=== PATIENT | male | born 1945 | race Caucasian/White ===

== ENCOUNTER 2016-06-17 15:15 | Inpatient (IN) | payer MEDICARE ==
[~2016-06-17] VITALS: Ht 177.8 cm; Wt 118.1 kg
[~2016-06-17 15:15] MED LIST: ASPI325T11 PO; ATOR20TA58 PO; CARV3.122 PO; INSU100I13 SQ; INSU100I17 SQ; LANS15CA5 PO; LOSA50TA6 PO; OMEP20CA9 PO; PRAS10TA4 AD; TRIA1CAP3 PO
[2016-06-17] MEDS ORDERED: ONDANSETRON PF 4 MG/2 ML VIAL. IV PRN (15:45)
[2016-06-17 15:48] LABS: BASO # 0.1 x10^3/uL (0.0-0.2); BASO % 1 % (0-3); EOS % 1 % (0-3); HEMATOCRIT 43.6 % (39.0-53.0); HEMOGLOBIN 14.6 g/dL (13.0-17.5); LYMPH # 1.8 x10^3/uL (1.0-4.8); LYMPH % 14 % (24-48); MEAN CORPUSCULAR HEMOGLOBIN 30 pg (25-35); MEAN CORPUSCULAR HGB CONC 34 g/dL (31-37); MEAN CORPUSCULAR VOLUME 90 fL (79-100); MONO % 8 % (0-9); NEUT % 76 % (31-73); PLATELET COUNT 220 x10^3/uL (140-400); RED BLOOD COUNT 4.86 x10^6/uL (4.30-5.70); RED CELL DISTRIBUTION WIDTH 14.6 % (11.5-14.5); WHITE BLOOD COUNT 13.3 x10^3/uL (4.0-11.0)
--- NOTE | 2016-06-17 15:49 | PHYS DOC ---
Past Medical History Past Medical History: CAD, Cancer, Diabetes-Type II, GERD, High Cholesterol, Hypertension, [place] Additional Past Medical Histor: skin cancer Past Surgical History: Other Additional Past Surgical Histo: C.C. with stent placement, skin cancer removed Alcohol Use: None Drug Use: None Adult General Chief Complaint Chief Complaint: CHEST PAIN HPI HPI 70-year-old male who presents with intermittent chest pain that he has had before. Patient had a heart catheterization back in April and had 2 stents placed. He had several other disease vessels that were not repaired at that time. Patient states she's been relatively chest pain-free since that time until last evening where he now states he has significant chest pain with activities. At rest he does not have chest pain. His any nausea or vomiting. He denies any shortness of breath. Patient is on Effient and aspirin therapy. Currently he states he is having no pain. Review of Systems Review of Systems Constitutional: Denies fever or chills [] Eyes: Denies change in visual acuity, redness, or eye pain [] HENT: Denies nasal congestion or sore throat [] Respiratory: Denies cough or shortness of breath [] Cardiovascular: No additional information not addressed in HPI [] GI: Denies abdominal pain, nausea, vomiting, bloody stools or diarrhea [] : Denies dysuria or hematuria [] Musculoskeletal: Denies back pain or joint pain [] Integument: Denies rash or skin lesions [] Neurologic: Denies headache, focal weakness or sensory changes [] Endocrine: Denies polyuria or polydipsia [] Current Medications Current Medications Allergies Allergies Allergies Coded Allergies Type Severity Reaction Last Updated Verified No Known Drug Allergies 05/08/16 No Physical Exam Physical Exam Constitutional: Well developed, well nourished, no acute distress, non-toxic appearance. [] HENT: Normocephalic, atraumatic, bilateral external ears normal, oropharynx moist, no oral exudates, nose normal. [] Eyes: PERRLA, EOMI, conjunctiva normal, no discharge. [] Neck: Normal range of motion, no tenderness, supple, no stridor. [] Cardiovascular:Heart rate regular rhythm, no murmur [] Lungs & Thorax: Bilateral breath sounds clear to auscultation [] Abdomen: Bowel sounds normal, soft, no tenderness, no masses, no pulsatile masses. [] Skin: Warm, dry, no erythema, no rash. [] Back: No tenderness, no CVA tenderness. [] Extremities: No tenderness, no cyanosis, no clubbing, ROM intact, no edema. [] Neurologic: Alert and oriented X 3, normal motor function, normal sensory function, no focal deficits noted. [] Psychologic: Affect normal, judgement normal, mood normal. [] Current Patient Data Vital Signs Vital Signs Date Time Temp Pulse Resp B/P Pulse Ox O2 Delivery O2 Flow Rate FiO2 06/17/16 15:33 98.4 70 16 153/67 96 Room Air 98.4 Lab Values Laboratory Tests Test 06/17/16 15:35 White Blood Count 13.3x10^3/uL (4.0-11.0) H Red Blood Count 4.86x10^6/uL (4.30-5.70) Hemoglobin 14.6g/dL (13.0-17.5) Hematocrit 43.6% (39.0-53.0) Mean Corpuscular Volume 90fL (79-100) Mean Corpuscular Hemoglobin 30pg (25-35) Mean Corpuscular Hemoglobin Concent 34g/dL (31-37) Red Cell Distribution Width 14.6% (11.5-14.5) H Platelet Count 220x10^3/uL (140-400) Neutrophils (%) (Auto) 76% (31-73) H Lymphocytes (%) (Auto) 14% (24-48) L Monocytes (%) (Auto) 8% (0-9) Eosinophils (%) (Auto) 1% (0-3) Basophils (%) (Auto) 1% (0-3) Neutrophils # (Auto) 10.1x10^3uL (1.8-7.7) H Lymphocytes # (Auto) 1.8x10^3/uL (1.0-4.8) Monocytes # (Auto) 1.1x10^3/uL (0.0-1.1) Eosinophils # (Auto) 0.2x10^3/uL (0.0-0.7) Basophils # (Auto) 0.1x10^3/uL (0.0-0.2) Sodium Level 142mmol/L (136-145) Potassium Level 3.6mmol/L (3.5-5.1) Chloride Level 105mmol/L (98-107) Carbon Dioxide Level 26mmol/L (21-32) Anion Gap 11 (6-14) Blood Urea Nitrogen 22mg/dL (8-26) Creatinine 1.2mg/dL (0.7-1.3) Estimated GFR (Cockcroft-Gault) 59.7 Glucose Level 99mg/dL (70-99) Calcium Level 9.2mg/dL (8.5-10.1) Troponin I Quantitative 0.021ng/mL (0.000-0.055) Laboratory Tests 06/17/16 15:35 Laboratory Tests 06/17/16 15:35 EKG EKG EKG as interpreted by me shows a sinus rhythm with a rate of 60 bpm. This EKG does not meet STEMI criteria. There are no overt signs of ischemia on this EKG. Radiology/Procedures Radiology/Procedures Portable 1 view of the chest as interpreted by me does not reveal an acute cardiopulmonary process Course & Med Decision Making Course & Med Decision Making Pertinent Labs and Imaging studies reviewed. (See chart for details) This 70-year-old male who is having intermittent chest pressure and pain with activities with be admitted to the hospital as I believe he is displaying signs consistent with angina. I will bring him in and place cardiology consult to Dr. Jackson. I will discuss the case with the hospitalist, Dr. Russ, to admit for further evaluation and treatment. I discussed the case with the four h agent, Dr. Vuong, who stated to admit the patient for further evaluation and treatment. I discussed the case with the hospitalist, Dr. Russ, who agreed that the patient should be admitted for further workup. He was admitted without incident. His laboratory workup was unrevealing including a set of cardiac enzymes. His EKG and chest x-ray were also unrevealing at this time. Dragon Disclaimer Dragon Disclaimer This electronic medical record was generated, in whole or in part, using a voice recognition dictation system. Departure Departure Impression: Primary Impression: Chest pain Disposition: ADMITTED INPATIENT Admitting Physician: Other Condition: STABLE Referrals: FAZAL TOMLIN MD (PCP) JAKI SIGALA DO Jun 17, 2016 15:48
--- NOTE | 2016-06-17 15:57 | RAD ---
Indication left chest pain. A single view of the chest was obtained and is compared to an examination 05/08/2016. Obscuration of the left heart border is again seen probably representing a pericardial fat pad. The heart size and pulmonary vessels are within normal limits. Acute parenchymal infiltrate is not seen. Significant pleural fluid is not present. There is no pneumothorax. The visualized bony structures appear grossly intact. Acute finding in the chest is not seen. IMPRESSION: No acute finding apparent in the chest
[2016-06-17] MEDS: IV NORMAL SALINE 1000ML BAG 1,000 ML IV SCH (15:59)
[2016-06-17 16:03] LABS: CALCIUM 9.2 mg/dL (8.5-10.1); CREATININE 1.2 mg/dL (0.7-1.3); GFR 59.7; POTASSIUM 3.6 mmol/L (3.5-5.1)
[2016-06-17 17:15] VITALS: BP 140/70
--- NOTE | 2016-06-17 17:19 | ACF ---
Admission Forms Criteria CARDIOLOGY GRG Clinical Indications for Admission to Inpatient Care ( Place 'X' for any and all applicable criteria): Hospital admission is needed for appropriate care of the patient because of ANY ONE of the following (1): [ ] I. Hemodynamic instability as indicated by ALL of the following (1)(2)(3) (4)(5) [ ]a) Vital signs or other findings not as expected for chronic patient condition or baseline [ ]b) Instability indicated by ANY ONE of the following: [ ]i) Hypotension [ ]ii) Symptomatic Tachycardia unresponsive to treatment ( e.g., analgesia, fluids, sedation as indicated) [ ]iii) Inadequate perfusion indicated by ANY ONE of the following: [ ] 1) Lactic acidosis (> 2 mmol/L) [ ] 2) New abnormal capillary refill (> 3 seconds) [ ] 3) Reduced urine output [ ] 4) New altered mental status [ ]iv) Orthostatic vital sign changes unresponsive to treatment (e.g., fluids) [ ]v) IV inotropic or vasopressor medication required to maintain adequate blood pressure or perfusion [ ] II. Severe heart failure as indicated by ANY ONE of the following(17)(18) [ ]a) Respiratory distress [ ]b) Hypotension [ ]c) Anasarca (refractory to outpatient therapy) [ ]d) Cardiac arrhythmias of immediate concern [ ]e) Myocardial ischemia [ ] III. Cardiac arrhythmias or findings of immediate concern indicated by ANY ONE of the following (19)(20): [ ] a) Heart rhythms that are inherently dangerous or unstable indicated by ANY ONE of the following (21)(22)(23): [ ] i) Resuscitated ventricular fibrillation or cardiac arrest [ ] ii) Ventricular escape rhythm [ ] iii) Sustained ventricular tachycardia (30 seconds or more of ventricular rhythm at greater than 100 beats per minute) [ ] iv) Nonsustained ventricular tachycardia and ANY ONE of the following: [ ] 1) Suspected cardiac ischemia as cause or consequence of ventricular tachycardia [ ] 2) In setting of acute myocarditis [ ] b) Unstable cardiac conduction defects indicated by ANY ONE of the following(23)(24)(25) [ ] i) Type II second-degree atrioventricular block [ ]ii) Third-degree atrioventricular block [ ]iii) New-onset left bundle branch block with suspected myocardial ischemia [ ]c) Any heart rhythm and ANY ONE of the following (21)(22)(26)(27) (28) [ ] i) Continuous long-term ECG monitoring needed (e.g., initiation of drug requiring monitoring for more than 24 hours) [ ] ii) Patient has automatic implanted cardioverter defibrillator that is repeatedly firing, malfunctioning, or in need of immediate adjustment of settings beyond the scope of ambulatory or observation care [ ]d) Heart rhythms of concern due to ANY ONE of the following: [ ] i) Hypotension [ ] ii) Respiratory distress [ ] iii) Association with other significant symptoms (e.g., bradycardia with syncope or ongoing dizziness, supraventricular tachycardia with chest pain (14)(15)(17) [ ] IV. Monitoring for cardiac contusion beyond the scope of observation care needed [A](30)(31)(32) [ ] V. Surgical or device complication (e.g., valve replacement complication , pacemaker dysfunction) (35)(41)(44)(45)(46) [ ] . Inpatient palliative care needed. [B](49) Also use Inpatient Palliative Care Criteria [ ] VII. Nonbacterial thrombotic (marantic) endocarditis (36)(43)(47)(48) [X] VIII. Cardiology condition, symptom, or finding for which emergency and observation care has failed or are not considered appropriate. [ ] IX. Acute valvular disease requiring inpatient as indicated by ANY ONE of the following (41) [ ]a) Acute valvular regurgitation (42) [ ]b) Noninfectious valvulitis (43) [ ]c) Obstructive valve thrombosis [ ]d) Paravalvular leak [ ]e) Other significant valvular disorder remaining after emergency or observation level of care (as appropriate) [ ]X. Pericardial disease requiring inpatient treatment as indicated by ANY ONE of the following (33)(34)(35)(36)(37) [ ]a) Suspected tamponade (38)(39)(40) [ ]b) Hemopericardium [ ]c) Other significant pericardial disorder remaining after emergency or observation level of care (as appropriate) [ ] XI. Cardiac ischemia beyond scope of emergency and observation care. [ ] XII. Hypertension requiring inpatient treatment as indicated by ANY ONE of the following (6)(7)(8) [ ]a) SBP greater than 220 mm Hg or DBP greater than 120 mmHg despite treatment [ ]b) SBP greater than 140 mm Hg or DBP greater than 100 mm Hg with evidence of acute end organ damage as indicated by ANY ONE of the following [ ] i) Encephalopathy [ ] ii) Acute renal failure as indicated by new onset of ANY ONE of the following (9)(10)(11)(12)(13) [ ]1) 3-fold rise in serum creatinine from baseline [ ]2) Serum creatinine greater than 4 mg/dL ( 354 micromoles/L) with acute rise greater than 0.5 mg/dL (44.2 micromoles/L) [ ]3) Reduction of more than 75% in estimated glomerular filtration rate from baseline [ ]4) Estimated glomerular filtration rate less than 35 mL/min/1.73m2 (0.59 mL/sec/1.73m2) in child up to 18 years of age [ ]5) Cessation of urine output indicated by ALL of the following [ ]A. Adequate volume status [ ]B. Inadequate urine output as indicated by ANY ONE of the following [ ]a. Urine output less than 0.3 mL/kg/hr for 24 hours [ ]b. Anuria (urine output less than 0.1 mL/kg/hr) for 12 hours [ ] iii) Aortic dissection [ ] iv) Myocardial Ischemia [ ] v) Left ventricular heart failure [ ]vi) Retinal Hemorrhage [ ]vii) Other significant finding [ ]c) Hypertension in child requiring inpatient treatment as indicated by ALL of the following(14)(15)(16) [ ] i) Outpatient treatment not effective, not available, or not appropriate [ ]ii) SBP or DBP greater than 95th percentile for age [ ]iii) Evidence of acute end organ damage as indicated by ANY ONE of the following [ ]1) Altered mental status [ ]2) Acute renal failure as indicated by new onset of ANY ONE of the following(9)(10)(11)(12)(13) [ ]A. 3-fold rise in serum creatinine from baseline [ ]B. Serum creatinine greater than 4 mg/dL (354 micromoles/L) with acute rise greater than 0.5 mg/dL (44.2 micromoles/L) [ ]C. Reduction of more than 75% in estimated glomerular filtration rate from baseline [ ]D. Estimated glomerular filtration rate less than 35 mL/min/1.73m2 (0.59 mL/sec/1.73m2) in child up to 18 years of age [ ]E. Cessation of urine output indicated by ALL of the following [ ]a. Adequate volume status [ ]b. Inadequate urine output as indicated by ANY ONE of the following [ ]i) Urine output less than 0.3 mL/kg/hr for 24 hours [ ]ii) Anuria ( urine output less than 0.1 mL/kg/hr) for 12 hours [ ]3) Severe headache [ ]4) Visual disturbance [ ]5) Retinal hemorrhage [ ]6) Other significant finding [ ]XIII. Complications of transplanted heart indicated by ANY ONE of the following(61): [ ]a) Acute graft rejection requiring inpatient management (eg, intravenous immunosuppression)(62)(63) [ ]b) Acute graft heart failure indicated by ANY ONE of the following(64): [ ]i) Hemodynamic instability [ ]ii) Cardiac arrhythmias of immediate concern [ ]iii) Pulmonary edema that is very severe (eg, mechanical ventilation needed, imminent or likely, need for 100% oxygen to keep oxygen saturation above 90%) [ ]iv) Pulmonary edema that is persistent as indicated by ALL of the following: [ ]1) New need for oxygen therapy to keep oxygen saturation above 90% (or increased FiO2 need from baseline) [ ]2) Has not improved sufficiently with emergency department or observation care IV diuretics or other heart failure treatments[E] [ ]v) Altered mental status that is severe or persistent [ ]vi) Increased creatinine (new on laboratory test) with reduction of more than 50% in estimated glomerular filtration rate from baseline [ ]vii) Progressively (ongoing) rising creatinine (known from past laboratory test) with reduction of more than 25% in estimated glomerular filtration rate from baseline [ ]viii) Acute renal failure [ ]ix) Acute peripheral ischemia (eg, examination shows pulseless, cool, mottled, or cyanotic extremity) [ ]x) Pulmonary artery catheter monitoring needed [ ]xi) Other sign or symptom of heart failure requiring inpatient treatment (ie, too severe or not responsive to outpatient and observation care treatment) [ ]c) Infection requiring inpatient management (eg, Hemodynamic instability, need for intravenous antimicrobial treatment)(66)(67)(68)(69)(70) [ ]d) Cardiac allograft vasculopathy requiring inpatient management ( eg evidence of cardiac ischemia)(71) [ ]e) Other complication of transplanted heart (eg, stroke, severe pulmonary hypertension, severe valvular dysfunction) requiring inpatient management(72) The original [facility] content created by [facility] has been revised. The portions of the content which have been revised are identified through the use of italic text or in bold, and [facility] has neither reviewed nor approved the modified material. All other unmodified content is copyright [facility]. Please see references footnoted in the original [facility] edition 2016 Admission Criteria Met?: Yes ZUHAIR MARTIN Jun 17, 2016 17:18
[2016-06-17] MEDS ORDERED: ASPI-482 PO (17:54)
[2016-06-17] MEDS ORDERED: LANSOPRAZOLE 15 MG PO PRN (18:15)
[2016-06-17] MEDS ORDERED: DEXTROSE 50% 25 GM / 50ML DISP.SYRIN. IV PRN (19:15)
[2016-06-17 19:20] VITALS: BP 125/55
--- NOTE | 2016-06-17 20:03 | HP ---
ADMIT DATE: 06/17/2016 CHIEF COMPLAINT: Left-sided chest pain. HISTORY OF PRESENT ILLNESS: The patient is a 70-year-old, gentleman, with past medical history significant for CAD, status post stent placement in April [address] Jackson, as well as diabetes mellitus. The patient presented to the Emergency Room after speaking to the staff at his fundraising consultant's office where he had called for advice with left-sided chest pain. He was advised to present to the Emergency Room for workup, although suspicion for cardiac etiology was low. He relates that pain was in his left chest above the nipple, lasted very briefly, severity of about 2 to 3, occurred twice. This was completely different than the pain that brought him to the hospital in April. He states that he thought it may be indigestion as he has had issues with that in the past. PAST MEDICAL HISTORY: CAD, diabetes mellitus, hypertension, GERD. FAMILY HISTORY: Negative for heart history. 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 Quit smoking 25 years ago. Denies any ongoing alcohol use. Lives with his son and [id number]. ALLERGIES: No known drug allergies. MEDICATIONS: MAR reconciled with home medications. REVIEW OF SYSTEMS: The patient is currently completely asymptomatic. Chest pain as per HPI prior during the day. Rest of organ system review is completely negative. PHYSICAL EXAMINATION: VITAL SIGNS: From today show a blood pressure of 140/70, heart rate of 63, respiratory rate at 20. He is afebrile. GENERAL: This is an overweight, 70-year-old, gentleman. Alert and oriented. No acute distress. Very pleasant. HEENT: Shows no scleral icterus. Oral mucosa is pink and moist. NECK: Thick. LUNGS: Clear to auscultation bilaterally. HEART: Has regular rate and rhythm, without any murmurs. ABDOMEN: Obese, positive bowel sounds. EXTREMITIES: Show no edema. SKIN: Warm, soft and dry, without any rash. LABORATORY DATA: CBC with a WBC of 13.3, hemoglobin 14.6, platelets of 220, neutrophils reported at 76. Chemistries with a BUN and creatinine of 22 and 1.2, normal electrolytes. Initial troponin normal. Blood sugar at 99. RADIOGRAPHIC IMAGING: Chest x-ray from today shows no acute finding in the chest. ASSESSMENT AND PLAN: The patient is a 70-year-old gentleman, with significant heart history and recent stent placement, now presenting with atypical chest pain. Suspect this is musculoskeletal as he relates this is worse with moving about. Nevertheless, given his heart history, we will admit, rule out acute coronary syndrome. His fundraising consultant, Dr. Armstrong, has been notified and will follow as well. His diabetes is typically very well controlled. We will continue his home regimen. Add insulin sliding scale for monitoring b.i.d. UBALDO ABDUL MD DR: UR/nts JOB#: [id number] / [id number] FAZAL Stevens MD MTDD
[2016-06-17] MEDS ORDERED: ATORVASTATIN CALCIUM 20 MG TABLET PO SCH (21:00)
[2016-06-17] MEDS ORDERED: INSULIN DETEMIR 300 UNITS/3 ML INSULN.PEN. SQ SCH ×2 (21:00)
[2016-06-17] MEDS: CARVEDILOL 3.125 MG TABLET PO SCH (21:05)
[2016-06-17 23:40] VITALS: BP 128/69
[2016-06-18 03:15] VITALS: BP 102/39
[2016-06-18 04:52] LABS: BASO # 0.1 x10^3/uL (0.0-0.2); BASO % 1 % (0-3); EOS % 2 % (0-3); HEMOGLOBIN 14.3 g/dL (13.0-17.5); LYMPH # 1.9 x10^3/uL (1.0-4.8); LYMPH % 18 % (24-48); MEAN CORPUSCULAR HEMOGLOBIN 30 pg (25-35); MEAN CORPUSCULAR HGB CONC 33 g/dL (31-37); MEAN CORPUSCULAR VOLUME 92 fL (79-100); MONO % 9 % (0-9); NEUT % 70 % (31-73); PLATELET COUNT 171 x10^3/uL (140-400); RED CELL DISTRIBUTION WIDTH 14.3 % (11.5-14.5); WHITE BLOOD COUNT 10.4 x10^3/uL (4.0-11.0)
[2016-06-18 05:08] LABS: CALCIUM 8.8 mg/dL (8.5-10.1); CREATININE 1.2 mg/dL (0.7-1.3); GFR 59.7; POTASSIUM 3.1 mmol/L (3.5-5.1)
--- NOTE | 2016-06-18 06:08 | EKG ---
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
[2016-06-18 07:30] VITALS: BP 113/59
[2016-06-18] MEDS: INSULIN ASPART 300 UNITS/3 ML INSULN.PEN SQ SCH ×2 (07:30→12:52)
[2016-06-18] MEDS ORDERED: PANTOPRAZOLE 40 MG TABLET. PO SCH (07:30)
[2016-06-18] MEDS ORDERED: INSULIN ASPART 300 UNITS/3 ML INSULN.PEN SQ SCH ×2 (07:30→08:00)
[2016-06-18] MEDS ORDERED: ASPIRIN ENTERIC COATED 81 MG TABLET.DR. PO SCH (09:00)
[2016-06-18] MEDS ORDERED: PRASUGREL 10 MG TABLET. PO SCH (09:00)
[2016-06-18] MEDS ORDERED: LOSARTAN POTASSIUM 50 MG TABLET. PO SCH (09:00)
[2016-06-18] MEDS ORDERED: TRIAMTERENE/HCTZ 37.5/25MG TABLET. PO SCH (09:00)
--- NOTE | 2016-06-18 09:21 | PDOC2 ---
CARDIAC CONSULT DATE OF CONSULT Date of Consult DATE: 06/18/16 TIME: 09:20 REASON FOR CONSULT Reason for Consult: Chest Pain. REFERRING PHYSICIAN Referring Physician: Dr. Mejia SOURCE Source: Chart review, Patient HISTORY OF PRESENT ILLNESS HISTORY OF PRESENT ILLNESS This is a 70 yo male, with recent STEMI requiring PCI/REYES x2 to LAD, who presented with complaints of chest pain. Patient reports pain began yesterday afternoon approximately 1 hr after eating. Located in his central to left chest. Describes as a dull ache. Non-radiating. Improved with antacid and laying down. Activity seemed to worsen it. Resolved yesterday evening without intervention and has not returned. Pain very different than what he previously experienced with TX. Denies any associated SOA, diaphoresis, dizziness, palpitations, or n/v. No recent illness/fevers, orthopnea, or LE edema. Reports that he has been experiencing a significant amount of gas with request belching lately. Reports compliance with medications including DAPT and ASA and Effient. PAST MEDICAL HISTORY Cardiovascular: CAD, CHF, HTN, TX, Hyperlipidemia, Other (ischemic cardiomyopathy LVEF 35%) Pulmonary: No pertinent hx CENTRAL NERVOUS SYSTEM: Other (no pertinent hx) GI: GERD Heme/Onc: No pertinent hx Hepatobiliary: No pertinent hx Psych: No pertinent hx Musculoskeletal: low back pain Rheumatologic: No pertinent hx Infectious disease: No pertinent hx ENT: No pertinent hx Renal/: No pertinent hx Endocrine: Diabetes Dermatology: No pertinent hx PAST SURGICAL HISTORY Past Surgical History: Other (PCI/REYES x2 to LAD) FAMILY HISTORY Family History: Stroke SOCIAL HISTORY Smoke: No ALCOHOL: none Drugs: None Lives: with Family Domestic Violence: Neg CURRENT MEDICATIONS CURRENT MEDICATIONS Current Medications Medications (Trade) Dose Ordered Sig/Dari Route PRN Reason Start Time Stop Time Status Last Admin Dose Admin Sodium Chloride (Iv Sodium Chloride 0.9% 1000ml Bag) 1,000 ml @ 75 mls/hr [id number] IV 06/17/16 16:00 06/18/16 15:59 06/17/16 15:59 Atorvastatin Calcium (Lipitor) 20 mg HS PO 06/17/16 21:00 06/17/16 21:04 Carvedilol (Coreg) 3.125 mg BIDWMEALS PO 06/17/16 19:00 06/17/16 21:05 Insulin Detemir (Levemir) 30 units QHS SQ 06/17/16 21:00 06/17/16 21:17 ALLERGIES ALLERGIES: Coded Allergies: No Known Drug Allergies (Unverified , 05/08/16) ROS Review of System 14 point ROS conducted with pertinent positives noted above in HPI. PHYSICAL EXAM General: Alert, Oriented X3, Cooperative, No acute distress HEENT: Mucous membr. moist/pink Lungs: Clear to auscultation, Normal air movement Heart: Regular rate, Normal S1, Normal S2, No murmurs Abdomen: Soft, No tenderness Extremities: No cyanosis, No edema, Normal pulses Skin: No significant lesion Neuro: Normal speech, Sensation intact Psych/Mental Status: Mental status NL, Mood NL MUSCULOSKELETAL: Full range of motion without pain VITALS VITALS Vital Signs Date Time Temp Pulse Resp B/P Pulse Ox O2 Delivery O2 Flow Rate FiO2 06/18/16 08:00 Room Air 06/18/16 07:30 97.6 57 113/59 96 97.6 06/18/16 03:15 16 LABS Lab: Laboratory Tests Test 06/17/16 15:35 06/17/16 21:10 06/18/16 00:01 06/18/16 03:52 White Blood Count 13.3x10^3/uL (4.0-11.0) 10.4x10^3/uL (4.0-11.0) Red Blood Count 4.86x10^6/uL (4.30-5.70) 4.70x10^6/uL (4.30-5.70) Hemoglobin 14.6g/dL (13.0-17.5) 14.3g/dL (13.0-17.5) Hematocrit 43.6% (39.0-53.0) 43.0% (39.0-53.0) Mean Corpuscular Volume 90fL (79-100) 92fL (79-100) Mean Corpuscular Hemoglobin 30pg (25-35) 30pg (25-35) Mean Corpuscular Hemoglobin Concent 34g/dL (31-37) 33g/dL (31-37) Red Cell Distribution Width 14.6% (11.5-14.5) 14.3% (11.5-14.5) Platelet Count 220x10^3/uL (140-400) 171x10^3/uL (140-400) Neutrophils (%) (Auto) 76% (31-73) 70% (31-73) Lymphocytes (%) (Auto) 14% (24-48) 18% (24-48) Monocytes (%) (Auto) 8% (0-9) 9% (0-9) Eosinophils (%) (Auto) 1% (0-3) 2% (0-3) Basophils (%) (Auto) 1% (0-3) 1% (0-3) Neutrophils # (Auto) 10.1x10^3uL (1.8-7.7) 7.3x10^3uL (1.8-7.7) Lymphocytes # (Auto) 1.8x10^3/uL (1.0-4.8) 1.9x10^3/uL (1.0-4.8) Monocytes # (Auto) 1.1x10^3/uL (0.0-1.1) 0.9x10^3/uL (0.0-1.1) Eosinophils # (Auto) 0.2x10^3/uL (0.0-0.7) 0.2x10^3/uL (0.0-0.7) Basophils # (Auto) 0.1x10^3/uL (0.0-0.2) 0.1x10^3/uL (0.0-0.2) Sodium Level 142mmol/L (136-145) 145mmol/L (136-145) Potassium Level 3.6mmol/L (3.5-5.1) 3.1mmol/L (3.5-5.1) Chloride Level 105mmol/L (98-107) 107mmol/L (98-107) Carbon Dioxide Level 26mmol/L (21-32) 28mmol/L (21-32) Anion Gap 11 (6-14) 10 (6-14) Blood Urea Nitrogen 22mg/dL (8-26) 19mg/dL (8-26) Creatinine 1.2mg/dL (0.7-1.3) 1.2mg/dL (0.7-1.3) Estimated GFR (Cockcroft-Gault) 59.7 59.7 Glucose Level 99mg/dL (70-99) 75mg/dL (70-99) Calcium Level 9.2mg/dL (8.5-10.1) 8.8mg/dL (8.5-10.1) Troponin I Quantitative 0.021ng/mL (0.000-0.055) 0.019ng/mL (0.000-0.055) 0.025ng/mL (0.000-0.055) Glucose (Fingerstick) 163mg/dL (70-99) ECHOCARDIOGRAM ECHOCARDIOGRAM <Conclusion> The left ventricle is normal size. Left ventricle systolic function is moderately impaired. The Ejection Fraction is estimated at 35%. There is hypokinesis in the apex, anterior, and anteroseptal barakat. There is borderline to mild left ventricular hypertrophy. There is no significant aortic valvular stenosis. Doppler and Color Flow revealed no significant aortic regurgitation. Doppler and Color Flow revealed trace mitral regurgitation. Doppler and Color Flow revealed no tricuspid valve regurgitation noted. DATE: 05/10/16 1416 HEART CATH HEART CATH Conclusion 1.) Successful PTCA of 100% narrowing at the origin and proximal portion of the LAD. ALESSANDRO 0 flow improved with GOBA . 2- 2.25 mm x 12 mm REYES were placed end- end in the Mid LAD and now ALESSANDRO 3 flow was present. Extra time was need to wire the LAD as 3 different wires were tried as the LAD arose at a 90* angle.So time-balloon was just over the 90 min goal. 2.) The LM was unremarkable. 3.) The Cx was of small caliber an;d had a long irregular 30-40% luminal narrowing in the Mid-distal segment. 4.) A modest sized bifercating Ramus-branch system had only mild plaquing at its origin and proximal areas. 5.) The RCA was dominant with fairly diffuse mild plaquing in the pros-mid portion. There was an 80-90 eccentric narrowing in mid-distl portion of a small PDA. 6.) There was mod-severe Anterio-apical hypokinesia of the LV- EF estimated at 35-40%. No MR was noted. 7.) Successful placement of an Angioseal Device in the RFA> The pt tolerated the procedure well. Recommendations Daily ASA with Plavix for at least one year Cardiac Rehabilitation Referral Aggressive Medical Therapy DATE: 05/09/162008 ASSESSMENT/PLAN ASSESSMENT/PLAN 1. Chest pain, atypical troponin series normal, AMI ruled out. EKG with no significant acute changes Suspected pain is GI in nature as he has been experiencing significant amount of gas/belching and pain was improved with antacid. Will continue to monitor- if stable, may discharge later this afternoon and f /u in our office with Dr. Jackson in 2-4 weeks. If pain is recurrent, could consider addition of Imdur. 2. CAD Recent PCI/REYES x2 to LAD additional 80-90% eccentric lesion in small RPDA in the mid to distal portion continue secondary prevention including DAPT 3. Chronic systolic heart failure with ischemic cardiomyopathy. LVEF 30-35% per recent echo appears clinically compensated continue with optimization therapy plan for repeat echo in 2-3 months to re-evaluate LVEF/ assess need for AICD in prevention of SCD 4. HTN controlled. continue with current therapy 5. HLD LDL = 44 (05/10/16) continue statin therapy 6. hypokalemia replace. monitor lytes 7. DM, II A1C = 5.9 lifestyle modifications recommended 8. GERD PPI management per PCP discussed lifestyle modification Problems: DAPHNIE CLIFFORD APRN Jun 18, 2016 09:21
[2016-06-18] MEDS ORDERED: POTASSIUM CHLORIDE 20 MEQ TABLET.ER. PO ONE (09:45)
[2016-06-18] MEDS: IV NORMAL SALINE 1000ML BAG 1,000 ML IV SCH (10:43)
[2016-06-18] MEDS: CARVEDILOL 3.125 MG TABLET PO SCH (10:49)
[2016-06-18 11:30] VITALS: BP 107/58
--- NOTE | 2016-06-18 11:48 | PDOC ---
PROGRESS NOTES Chief Complaint Chief Complaint CP History of Present Illness History of Present Illness Pt at baseline DW RN Will discharge Vitals Vitals Vital Signs Date Time Temp Pulse Resp B/P Pulse Ox O2 Delivery O2 Flow Rate FiO2 06/18/16 10:50 62 123/43 06/18/16 08:00 Room Air 06/18/16 07:30 97.6 96 97.6 06/18/16 03:15 16 Physical Exam General: Alert, Oriented X3, Cooperative, No acute distress Heart: Regular rate, Normal S1, Normal S2, No murmurs Lungs: Clear Abdomen: Soft, No tenderness Extremities: No cyanosis, No edema, Normal pulses Skin: No significant lesion Labs LABS Laboratory Tests Test 06/17/16 15:35 06/17/16 21:10 06/18/16 00:01 06/18/16 03:52 White Blood Count 13.3x10^3/uL (4.0-11.0) 10.4x10^3/uL (4.0-11.0) Red Blood Count 4.86x10^6/uL (4.30-5.70) 4.70x10^6/uL (4.30-5.70) Hemoglobin 14.6g/dL (13.0-17.5) 14.3g/dL (13.0-17.5) Hematocrit 43.6% (39.0-53.0) 43.0% (39.0-53.0) Mean Corpuscular Volume 90fL (79-100) 92fL (79-100) Mean Corpuscular Hemoglobin 30pg (25-35) 30pg (25-35) Mean Corpuscular Hemoglobin Concent 34g/dL (31-37) 33g/dL (31-37) Red Cell Distribution Width 14.6% (11.5-14.5) 14.3% (11.5-14.5) Platelet Count 220x10^3/uL (140-400) 171x10^3/uL (140-400) Neutrophils (%) (Auto) 76% (31-73) 70% (31-73) Lymphocytes (%) (Auto) 14% (24-48) 18% (24-48) Monocytes (%) (Auto) 8% (0-9) 9% (0-9) Eosinophils (%) (Auto) 1% (0-3) 2% (0-3) Basophils (%) (Auto) 1% (0-3) 1% (0-3) Neutrophils # (Auto) 10.1x10^3uL (1.8-7.7) 7.3x10^3uL (1.8-7.7) Lymphocytes # (Auto) 1.8x10^3/uL (1.0-4.8) 1.9x10^3/uL (1.0-4.8) Monocytes # (Auto) 1.1x10^3/uL (0.0-1.1) 0.9x10^3/uL (0.0-1.1) Eosinophils # (Auto) 0.2x10^3/uL (0.0-0.7) 0.2x10^3/uL (0.0-0.7) Basophils # (Auto) 0.1x10^3/uL (0.0-0.2) 0.1x10^3/uL (0.0-0.2) Sodium Level 142mmol/L (136-145) 145mmol/L (136-145) Potassium Level 3.6mmol/L (3.5-5.1) 3.1mmol/L (3.5-5.1) Chloride Level 105mmol/L (98-107) 107mmol/L (98-107) Carbon Dioxide Level 26mmol/L (21-32) 28mmol/L (21-32) Anion Gap 11 (6-14) 10 (6-14) Blood Urea Nitrogen 22mg/dL (8-26) 19mg/dL (8-26) Creatinine 1.2mg/dL (0.7-1.3) 1.2mg/dL (0.7-1.3) Estimated GFR (Cockcroft-Gault) 59.7 59.7 Glucose Level 99mg/dL (70-99) 75mg/dL (70-99) Calcium Level 9.2mg/dL (8.5-10.1) 8.8mg/dL (8.5-10.1) Troponin I Quantitative 0.021ng/mL (0.000-0.055) 0.019ng/mL (0.000-0.055) 0.025ng/mL (0.000-0.055) Glucose (Fingerstick) 163mg/dL (70-99) Test 06/18/16 07:33 06/18/16 10:55 Glucose (Fingerstick) 98mg/dL (70-99) 93mg/dL (70-99) Assessment and Plan Assessmemt and Plan Problems Medical Problems: (1) Chest pain Status: Acute Discharge Problems: Comment Review of Relevant I have reviewed the following items abel (where applicable) has been applied. Labs Laboratory Tests Test 06/17/16 15:35 06/17/16 21:10 06/18/16 00:01 06/18/16 03:52 White Blood Count 13.3x10^3/uL (4.0-11.0) 10.4x10^3/uL (4.0-11.0) Red Blood Count 4.86x10^6/uL (4.30-5.70) 4.70x10^6/uL (4.30-5.70) Hemoglobin 14.6g/dL (13.0-17.5) 14.3g/dL (13.0-17.5) Hematocrit 43.6% (39.0-53.0) 43.0% (39.0-53.0) Mean Corpuscular Volume 90fL (79-100) 92fL (79-100) Mean Corpuscular Hemoglobin 30pg (25-35) 30pg (25-35) Mean Corpuscular Hemoglobin Concent 34g/dL (31-37) 33g/dL (31-37) Red Cell Distribution Width 14.6% (11.5-14.5) 14.3% (11.5-14.5) Platelet Count 220x10^3/uL (140-400) 171x10^3/uL (140-400) Neutrophils (%) (Auto) 76% (31-73) 70% (31-73) Lymphocytes (%) (Auto) 14% (24-48) 18% (24-48) Monocytes (%) (Auto) 8% (0-9) 9% (0-9) Eosinophils (%) (Auto) 1% (0-3) 2% (0-3) Basophils (%) (Auto) 1% (0-3) 1% (0-3) Neutrophils # (Auto) 10.1x10^3uL (1.8-7.7) 7.3x10^3uL (1.8-7.7) Lymphocytes # (Auto) 1.8x10^3/uL (1.0-4.8) 1.9x10^3/uL (1.0-4.8) Monocytes # (Auto) 1.1x10^3/uL (0.0-1.1) 0.9x10^3/uL (0.0-1.1) Eosinophils # (Auto) 0.2x10^3/uL (0.0-0.7) 0.2x10^3/uL (0.0-0.7) Basophils # (Auto) 0.1x10^3/uL (0.0-0.2) 0.1x10^3/uL (0.0-0.2) Sodium Level 142mmol/L (136-145) 145mmol/L (136-145) Potassium Level 3.6mmol/L (3.5-5.1) 3.1mmol/L (3.5-5.1) Chloride Level 105mmol/L (98-107) 107mmol/L (98-107) Carbon Dioxide Level 26mmol/L (21-32) 28mmol/L (21-32) Anion Gap 11 (6-14) 10 (6-14) Blood Urea Nitrogen 22mg/dL (8-26) 19mg/dL (8-26) Creatinine 1.2mg/dL (0.7-1.3) 1.2mg/dL (0.7-1.3) Estimated GFR (Cockcroft-Gault) 59.7 59.7 Glucose Level 99mg/dL (70-99) 75mg/dL (70-99) Calcium Level 9.2mg/dL (8.5-10.1) 8.8mg/dL (8.5-10.1) Troponin I Quantitative 0.021ng/mL (0.000-0.055) 0.019ng/mL (0.000-0.055) 0.025ng/mL (0.000-0.055) Glucose (Fingerstick) 163mg/dL (70-99) Test 06/18/16 07:33 06/18/16 10:55 Glucose (Fingerstick) 98mg/dL (70-99) 93mg/dL (70-99) Laboratory Tests Test 06/17/16 15:35 06/17/16 21:10 06/18/16 00:01 06/18/16 03:52 White Blood Count 13.3x10^3/uL (4.0-11.0) 10.4x10^3/uL (4.0-11.0) Red Blood Count 4.86x10^6/uL (4.30-5.70) 4.70x10^6/uL (4.30-5.70) Hemoglobin 14.6g/dL (13.0-17.5) 14.3g/dL (13.0-17.5) Hematocrit 43.6% (39.0-53.0) 43.0% (39.0-53.0) Mean Corpuscular Volume 90fL (79-100) 92fL (79-100) Mean Corpuscular Hemoglobin 30pg (25-35) 30pg (25-35) Mean Corpuscular Hemoglobin Concent 34g/dL (31-37) 33g/dL (31-37) Red Cell Distribution Width 14.6% (11.5-14.5) 14.3% (11.5-14.5) Platelet Count 220x10^3/uL (140-400) 171x10^3/uL (140-400) Neutrophils (%) (Auto) 76% (31-73) 70% (31-73) Lymphocytes (%) (Auto) 14% (24-48) 18% (24-48) Monocytes (%) (Auto) 8% (0-9) 9% (0-9) Eosinophils (%) (Auto) 1% (0-3) 2% (0-3) Basophils (%) (Auto) 1% (0-3) 1% (0-3) Neutrophils # (Auto) 10.1x10^3uL (1.8-7.7) 7.3x10^3uL (1.8-7.7) Lymphocytes # (Auto) 1.8x10^3/uL (1.0-4.8) 1.9x10^3/uL (1.0-4.8) Monocytes # (Auto) 1.1x10^3/uL (0.0-1.1) 0.9x10^3/uL (0.0-1.1) Eosinophils # (Auto) 0.2x10^3/uL (0.0-0.7) 0.2x10^3/uL (0.0-0.7) Basophils # (Auto) 0.1x10^3/uL (0.0-0.2) 0.1x10^3/uL (0.0-0.2) Sodium Level 142mmol/L (136-145) 145mmol/L (136-145) Potassium Level 3.6mmol/L (3.5-5.1) 3.1mmol/L (3.5-5.1) Chloride Level 105mmol/L (98-107) 107mmol/L (98-107) Carbon Dioxide Level 26mmol/L (21-32) 28mmol/L (21-32) Anion Gap 11 (6-14) 10 (6-14) Blood Urea Nitrogen 22mg/dL (8-26) 19mg/dL (8-26) Creatinine 1.2mg/dL (0.7-1.3) 1.2mg/dL (0.7-1.3) Estimated GFR (Cockcroft-Gault) 59.7 59.7 Glucose Level 99mg/dL (70-99) 75mg/dL (70-99) Calcium Level 9.2mg/dL (8.5-10.1) 8.8mg/dL (8.5-10.1) Troponin I Quantitative 0.021ng/mL (0.000-0.055) 0.019ng/mL (0.000-0.055) 0.025ng/mL (0.000-0.055) Glucose (Fingerstick) 163mg/dL (70-99) Test 06/18/16 07:33 06/18/16 10:55 Glucose (Fingerstick) 98mg/dL (70-99) 93mg/dL (70-99) Medications Current Medications Ondansetron HCl 4 mg 4 mg PRN Q8HRS PRN IV NAUSEA/VOMITING; Start 06/17/16 at 15:45; Stop 06/18/16 at 15:44 Sodium Chloride (Iv Sodium Chloride 0.9% 1000ml Bag) 1,000 ml @ 75 mls/hr [id number] IV Last administered on 06/17/16 15:59; Start 06/17/16 at 16:00; Stop 06/18/16 at 15:59 Aspirin (Ecotrin) 81 mg DAILY PO Last administered on 06/18/16 10:51; Start at 09:00 Atorvastatin Calcium (Lipitor) 20 mg HS PO Last administered on 06/17/16 21:04 ; Start 06/17/16 at 21:00 Carvedilol (Coreg) 3.125 mg BIDWMEALS PO Last administered on 06/18/16 10:49; Start 06/17/16 at 19:00 Insulin Aspart (Novolog) 10 units TIDAC SQ ; Start 06/18/16 at 07:30; Stop 06/18 at 07:30; Status DC Losartan Potassium (Cozaar) 50 mg DAILY PO Last administered on 06/18/16 10:50 ; Start 06/18/16 at 09:00 Prasugrel (Effient) 10 mg DAILY PO Last administered on 06/18/16 10:49; Start 06/18/16 at 09:00 Insulin Detemir (Levemir) 30 units QHS SQ Last administered on 06/17/16 21:17 ; Start 06/17/16 at 21:00 Non-Formulary Medication 15 mg PRN PRN PO INDIGESTION; Start 06/17/16 at 18:15; Status UNV Pantoprazole Sodium (Protonix) 40 mg DAILYAC PO Last administered on 06/18/16 10:51; Start 06/18/16 at 07:30 Triamterene/HCTZ (Maxzide 37.5/ 25mg) 1 tab DAILY PO Last administered on 10:51; Start 06/18/16 at 09:00 Insulin Detemir (Levemir) 30 units QHS SQ ; Start 06/17/16 at 21:00; Status UNV Insulin Aspart (Novolog) 0-5 UNITS TIDWMEALS SQ ; Start 06/18/16 at 08:00; Status Cancel Dextrose 12.5 gm PRN Q15MIN PRN IV SEE COMMENTS; Start 06/17/16 at 19:15; Status Cancel Insulin Aspart (Novolog) 10 units BIDAC SQ ; Start 06/18/16 at 07:30 Potassium Chloride (Klor-Con) 40 meq 1X ONCE PO Last administered on t 10:48; Start 06/18/16 at 09:45; Stop 06/18/16 at 09:48; Status DC Active Scripts Active Reported Aspir 81 (Aspirin) 81 Mg Tablet. 1 Tab PO DAILY Carvedilol 3.125 Mg Tablet Mg PO BIDACBL Effient (Prasugrel Hcl) 10 Mg Tablet 10 Mg AD DAILY Triamterene-Hctz 37.5-25 Mg Cp (Triamterene/Hydrochlorothiazid) 1 Each Capsule 1 Cap PO DAILY Atorvastatin Calcium 20 Mg Tablet 20 Mg PO HS Losartan Potassium 50 Mg Tablet 50 Mg PO DAILY Lansoprazole 15 Mg Capsule. 15 Mg PO PRN PRN Omeprazole 20 Mg Capsule. 20 Mg PO BID Novolog Flexpen (Insulin Aspart) 100 Unit/1 Ml Insuln.pen 10 Unit SQ TIDAC Lantus Solostar (Insulin Glargine,Hum.rec.anlog) 100 Unit/1 Ml Insuln.pen 30 Unit SQ QHS Vitals/I & O Vital Sign - Last 24 Hours 06/17/16 06/17/16 06/17/16 06/17/16 15:33 16:24 17:15 18:33 Temp 98.4 98.3 98.4 98.3 Pulse 70 58 63 Resp 16 20 20 B/P 153/67 153/67 140/70 Pulse Ox 96 96 95 O2 Delivery Room Air Room Air Room Air 06/17/16 06/17/16 06/17/16 06/17/16 19:20 19:20 21:05 23:40 Temp 98.4 98.1 98.4 98.1 Pulse 60 60 58 Resp 18 18 B/P 125/55 125/55 128/69 Pulse Ox 96 97 O2 Delivery Room Air Room Air Room Air 06/18/16 06/18/16 06/18/16 06/18/16 03:15 07:30 08:00 10:49 Temp 97.5 97.6 97.5 97.6 Pulse 48 57 Resp 16 B/P 102/39 113/59 123/43 Pulse Ox 97 96 O2 Delivery Room Air Room Air Room Air 06/18/16 10:50 Pulse 62 B/P 123/43 Intake and Output 06/17/16 06/17/16 06/18/16 15:00 23:00 07:00 Intake Total 60 ml 500 ml Balance 60 ml 500 ml LESLY THOMAS III DO Jun 18, 2016 11:48
[2016-06-18 12:18] VITALS: BP 107/58
--- NOTE | 2016-06-21 21:02 | DS ---
DATE OF DISCHARGE: 06/18/2016 ADMISSION DIAGNOSES: Chest pain. DISCHARGE DIAGNOSIS: Atypical chest pain. HOSPITAL COURSE: The patient is a pleasant 70-year-old male who has a history of coronary artery disease, presented with chest pain. He was admitted. We checked serial enzymes, serial EKGs, consulted Cardiology. They felt this was probably noncardiac at this time, we plan to discharge. DISPOSITION: Home. ACTIVITY: As tolerated. DIET: Low sodium. MEDICATIONS: Please see the MRAD. TOTAL TIME ON DISCHARGE: 33 minutes. LESLY THOMAS DO DR: MICHELLE/rocael JOB#: [id number] / [id number]
== END 2016-06-18 14:00 | disposition home or self-care (01) | DRG 392 ==
LOC: ER 15:15 → 2 SOUTH 15:41
PROVIDERS: ADMIT Internal Medicine Hematology & Oncology; ATTEND Internal Medicine Hematology & Oncology
DX: K21.9 Gastro-esophageal reflux disease without esophagitis (principal); I50.22 Chronic systolic (congestive) heart failure; E11.9 Type 2 diabetes mellitus without complications; E78.00 Pure hypercholesterolemia, unspecified; E78.5 Hyperlipidemia, unspecified; E87.6 Hypokalemia; I11.0 Hypertensive heart disease with heart failure; I25.10 Atherosclerotic heart disease of native coronary artery without angina pectoris; I25.5 Ischemic cardiomyopathy; Z79.82 Long term (current) use of aspirin; I25.2 Old myocardial infarction; Z82.3 Family history of stroke; Z85.828 Personal history of other malignant neoplasm of skin; Z87.891 Personal history of nicotine dependence; Z95.5 Presence of coronary angioplasty implant and graft
CPT/HCPCS: 36415; 71010; 80048; 82947; 84484; 85027; 93005; J1815; J7030; 99285-25

== ENCOUNTER → 2016-08-09 | Outpatient (CLI) | payer MEDICARE ==
[~2016-08-09] MED LIST changes: +ASPI-482 PO
--- NOTE | 2016-08-09 17:21 | CARD ---
APPROVED REPORT EXAM: Two-dimensional and M-mode echocardiogram with Doppler and color Doppler. Other Information Quality : FairHR: 62bpm Rhythm : NSR INDICATION Post SD RISK FACTORS Hypertension Obesity Diabetes 2D DIMENSIONS RVDd2.1 (2.9-3.5cm)Left Atrium(2D)4.2 (1.6-4.0cm) IVSd1.0 (0.7-1.1cm)Aortic Root(2D)2.6 (2.0-3.7cm) LVDd5.4 (3.9-5.9cm)LVOT Diameter2.2 (1.8-2.4cm) PWd0.9 (0.7-1.1cm)LVDs3.9 (2.5-4.0cm) FS (%) 27.5 %SV75.2 ml LVEF(%)52.9 (>50%) Aortic Valve AoV Peak Meek.206.9cm/sAoV VTI42.4cm AO Peak GR.17.1mmHgLVOT Peak Meek.127.2cm/s AO Mean GR.8mmHgAVA (VMAX)2.43cm2 Mitral Valve MV E Qbjgjyiw53.8cm/sMV A Velocity0.6cm/s E/A Tydtm731.3MV A [id number] Pulmonary Vein S1 Keikxmiz58.5cm/sD2 Mbiveecp44.3cm/s PVa [id number] LEFT VENTRICLE The left ventricle is normal size. There is normal left ventricular wall thickness. Left ventricle sy stolic function is low normal. The Ejection Fraction is 50-55%. There is moderate to severe hypokines is in the apex, and distal anterior and anteroseptal barakat. Transmitral Doppler flow pattern is Grade I-abnormal relaxation pattern. No left ventricle thrombus noted on this study. RIGHT VENTRICLE The right ventricle is normal size. There is normal right ventricular wall thickness. The right ventr icular systolic function is normal. ATRIA The left atrium size is normal. The right atrium size is normal. The interatrial septum is intact wit h no evidence for an atrial septal defect or patent foramen ovale as noted on 2-D or Doppler imaging. AORTIC VALVE The aortic valve is mildly sclerotic. Doppler and Color Flow revealed no significant aortic regurgita tion. There is no significant aortic valvular stenosis. MITRAL VALVE Mitral annular calcification is mild. The mitral valve leaflets are thickened. There is no evidence o f mitral valve prolapse. There is no mitral valve stenosis. Doppler and Color Flow revealed no mitral valve regurgitation noted. TRICUSPID VALVE The tricuspid valve is normal in structure and function. There is no tricuspid valve prolapse or vege tation. There is no tricuspid valve stenosis. PULMONIC VALVE The pulmonic valve is not well visualized. Doppler and Color Flow revealed no pulmonic valvular regur gitation. Elevated pulmonary valve velocities were noted. GREAT VESSELS The aortic root is normal in size. The ascending aorta is normal in size. The IVC is normal in size a nd collapses >50% with inspiration. PERICARDIAL EFFUSION There is no evidence of significant pericardial effusion. Critical Notification Critical Value: No <Conclusion> Left ventricle systolic function is low normal. The Ejection Fraction is 50-55%. There is moderate to severe hypokinesis in the apex, and distal anterior and anteroseptal barakat. No left ventricle thrombus noted on this study.
== END | disposition home or self-care (01) ==
LOC: ECHO 09:33
PROVIDERS: ATTEND Internal Medicine Cardiovascular Disease
DX: I21.3 ST elevation (STEMI) myocardial infarction of unspecified site (principal)
CPT/HCPCS: 93306

== ENCOUNTER → 2019-04-16 | Outpatient (CLI) | payer MEDICARE ==
[2018-06-16 11:00] VITALS: BP 132/60
[~2019-04-16] MED LIST changes: +CARV3.1210 PO; -CARV3.122 PO; +LOSA-73 PO; +LOSA25TA54 PO; -LOSA50TA6 PO; +METO-239 PO; +METO25TA4 PO; +OMEP20CA10 PO; -OMEP20CA9 PO; -PRAS10TA4 AD; +PRAS10TA9 AD
--- NOTE | 2019-04-16 16:33 | RAD ---
MR#: [id number] Date of Study: 04/16/2019 Ordering Physician: MORIAH DELAROSA, Referring Physician: MORIAH DELAROSA, Tech: Haider López, FARSHAD, RDMS, RVT, RDCS, RTR APPROVED REPORT Patient Location : OUT-PATIENT Indications Lower Extremity Pain : Findings Grayscale images of the bilateral saphenofemoral junctions do not reveal any obvious evidence of thro mbus. The right great saphenous vein measures 9 mm and has no evidence of reflux. The left great saphenous vein measures 5.2 mm and does not show any evidence of reflux. Bilateral lesser saphenous veins do not show any evidence of reflux. Critical Notification Critical Value: No <Conclusion> 1. Negative for reflux in the bilateral greater and lesser saphenous veins. Signed by : Sidney Vuong, Electronically Approved : 04/16/2019 16:32:57
--- NOTE | 2019-04-16 16:35 | RAD ---
MR#: [id number] Date of Study: 04/16/2019 Ordering Physician: MORIAH DELAROSA, Referring Physician: MORIAH DELAROSA, Tech: Haider López MBA, RDMS, RVT, RDCS, RTR APPROVED REPORT Patient Location: OUT-PATIENT Indications Rest Pain: VELOCITY AND DOPPLER WAVEFORM ANALYSIS RIGHT cm/secWaveformSeverity LEFT cm/secWaveform Severity dCFA 140.0BiphasicdCFA 157.0Biphasic Prof Fem Art. 68.0BiphasicProf Fem Art. 59.0Biphasic Fem Art Prox. 98.0TriphasicFem Art Prox. 98.0Biphasic Fem Art Mid. 84.0TriphasicFem Art Mid. 85.0Biphasic Fem Art Dist. 94.0TriphasicFem Art Dist. 83.0Biphasic Pop Art(Fossa) 72.0BiphasicPop Art(AK) 86.0Biphasic ORAL HEALTH THERAPIST Prox. 72.0BiphasicPTA Prox. 72.0Biphasic ORAL HEALTH THERAPIST Dist. 52.0BiphasicPTA Dist. 86.0Biphasic Per Art Mid. 65.0BiphasicPer Art Mid. 76.0Biphasic JANE Prox. 57.0BiphasicATA Prox. 115.0Biphasic DPA 51BiphasicDPA 83Biphasic Findings Grayscale images of the bilateral lower extremity arterial vessels reveal mild diffuse plaque. No foc al high-grade stenosis is identified. Spectral waveforms and velocities from the common femoral artery to the below-knee vessels are within normal limits and mostly triphasic and biphasic in nature. There is three-vessel runoff below the knee without any focal obstruction. Critical Notification Critical Value: No <Conclusion> 1. No significant lower extremity arterial disease bilaterally. Signed by : Sidney Vuong, Electronically Approved : 04/16/2019 16:34:22
== END | disposition home or self-care (01) ==
LOC: US 13:13
PROVIDERS: ATTEND Internal Medicine Cardiovascular Disease
DX: I70.203 Unspecified atherosclerosis of native arteries of extremities, bilateral legs (principal)
CPT/HCPCS: 93925; 93970

== ENCOUNTER 2020-09-01 11:50 | Emergency (ER) | payer MEDICARE ==
[~2020-09-01] VITALS: Ht 175.3 cm; Wt 127.0 kg
[~2020-09-01 11:50] MED LIST changes: -OMEP20CA10 PO; +OMEP20CA16 PO
[2020-09-01 12:18] VITALS: BP 170/75
--- NOTE | 2020-09-01 12:24 | ED.ADGEN ---
Past Medical History Past Medical History: CAD, Cancer, Diabetes-Type II, GERD, High Cholesterol, Hypertension, [place] Additional Past Medical Histor: , CARDIAC STENTS Past Surgical History: Other Additional Past Surgical Histo: C.C. with stent placement, skin cancer removed Smoking Status: Former Smoker Alcohol Use: None Drug Use: None General Adult EDM: Chief Complaint: LACERATION/AVULSION HPI: HPI: Patient is a 74 year old male, accompanied by his friend, who presents emergency department with complaints of a laceration to the left side of his hand. Patient reports that he was using a pocket knife to cut back branching he accidentally cut himself. Patient is unsure when his last tetanus shot was. Patient denies any numbness, tingling, or decreased sensation of the affected area. He denies any decreased movement in his wrist or his fingers. He currently rates the pain a 5 out of 10 on the pain scale, he denies any alleviating or exacerbating factors. Patient reports that he is dominantly right-handed. Review of Systems: Review of Systems: Complete ROS is negative unless otherwise noted in HPI. Current Medications: Current Medications Medications (Trade) Dose Ordered Sig/Dari Start Time Stop Time Status Last Admin Dose Admin Diphtheria/ Tetanus/Acell Pertussis (ADACEL TDap SYRINGE) 0.5 ml ONCE ONCE 09/01/20 14:00 09/01/20 14:01 DC Lidocaine/ Epinephrine (LIDOCAINE 2%-EPI 1:100,000 multi-dose) 20 ml 1X ONCE 09/01/20 12:45 09/01/20 12:46 DC 09/01/20 12:40 20 ML Allergies: Allergies: Allergies Coded Allergies Type Severity Reaction Last Updated Verified No Known Drug Allergies 05/08/16 No Physical Exam: PE: See Above Constitutional: Well developed, well nourished, no acute distress, non-toxic appearance, obese. [] HENT: Normocephalic, atraumatic, bilateral external ears normal, nose normal. [] Eyes: PERRLA, EOMI, conjunctiva normal, no discharge. [] Neck: Normal range of motion, no stridor. [] Cardiovascular:Heart rate regular rhythm Lungs & Thorax: Respirations even and unlabored, no retractions, no respiratory distress Skin: Warm, dry, no erythema, no rash; 7 cm laceration of the dorsal surface of the left hand along the medial edge with exposed muscle, no visible foreign body, no visible tendon injury. [] Extremities: Left hand: Normal sensation, no bony tenderness, full extension/flexion of all digits, no cyanosis, ROM intact, no edema. [] Neurologic: Alert and oriented X 3, normal motor, normal sensory, no focal deficits noted. [] Psychologic: Affect normal, judgement normal, mood normal. [] Current Patient Data: Vital Signs: Vital Signs Date Time Temp Pulse Resp B/P (MAP) Pulse Ox O2 Delivery O2 Flow Rate FiO2 09/01/20 12:18 98.1 84 12 170/75 (106) 94 Room Air 98.1 EKG: EKG: [] Heart Score: C/O Chest Pain: No Risk Scores: Score 0 - 3: 2.5% MACE over next 6 weeks - Discharge Home Score 4 - 6: 20.3% MACE over next 6 weeks - Admit for Clinical Observation Score 7 - 10: 72.7% MACE over next 6 weeks - Early Invasive Strategies Radiology/Procedures: Radiology/Procedures: Laceration Repair by me: Anesthesia: 2% lidocaine with epinephrine locally Location: Left hand Tendon/Joint/Nerves: No injury Foreign body: None detected after copious irrigation and exploration with NS and chlorhexidine Technique: the underlying lacerated muscle was repaired with a continuous suture with 5 throws of 5-0 Vicryl: the external laceration was repaired using 14 simple Interrupted Sutures with 4-0 Ethilon Complexity: Subcutaneous sutures as documented above Post Closure Length: 7.5 cm Patient's bleeding was easily controlled in the department and there is no indication of anemia. No evidence of compartment syndrome, neurologic injury, vascular injury, open joint, tendon laceration, or foreign body. Patient is appropriate for outpatient follow up. [] [] Course & Med Decision Making: Course & Med Decision Making Pertinent Labs and Imaging studies reviewed. (See chart for details) I have personally interviewed and examined patient. All charts, labs and imaging studies were reviewed. I agreed with the PA/STONE FINISHER's findings, exam and plan of care. I examined the patient, no tenderness or vascular injury. Dragon Disclaimer: Dragon Disclaimer: This electronic medical record was generated, in whole or in part, using a voice recognition dictation system. Departure Departure Impression: Primary Impression: Laceration of hand, complicated Additional Impression: Need for Tdap vaccination Disposition: DC HOME SELF CARE/HOMELESS Condition: STABLE Referrals: FAZAL TOMLIN MD (PCP) Patient Instructions: Laceration Care, Adult, [id number] Additional Instructions: Fill the prescription and take it as directed. Keep the area clean and dry. You may take Tylenol or ibuprofen as needed for pain. Keep the dressing that was placed today on for 24 hours then change the dressing twice a day and apply antibiotic ointment to the area. Follow-up with your primary care doctor, or ret urn to the emergency room in 10-14 days to have the sutures removed, sooner if you develop signs of infection including: redness, warmth, drainage, or a fever. Scripts Cephalexin (CEPHALEXIN) 500 Mg Capsule 1 CAP PO QID for 10 Days, #40 CAP 0 Refills Prov: HOMERO CUEVAS APRN 09/01/20 Problem Qualifiers Primary Impression: Laceration of hand, complicated Encounter type: initial encounter Laterality: left Qualified Codes: S61.412A - Laceration without foreign body of left hand, initial encounter HOMERO CUEVAS APRN Sep 01, 2020 12:24 MARAH MACK DO Sep 01, 2020 14:04
[2020-09-01] MEDS ORDERED: LIDOCAINE 2%/EPI 1:100,000 20 ML VIAL. INJ ONE (12:45)
[2020-09-01] MEDS ORDERED: DIPH,PERTUSS(ACELL),TET VAC/PF 0.5 ML SYRINGE. VAX IM ONE (14:00)
[2020-09-01] MEDS ORDERED: CEPH500C PO (14:01)
== END 2020-09-01 14:22 | disposition home or self-care (01) ==
LOC: ER 11:50
DX: S61.412A Laceration without foreign body of left hand, initial encounter (principal); E11.9 Type 2 diabetes mellitus without complications; K21.9 Gastro-esophageal reflux disease without esophagitis; I11.9 Hypertensive heart disease without heart failure; E78.00 Pure hypercholesterolemia, unspecified; I25.2 Old myocardial infarction; Z87.891 Personal history of nicotine dependence; Z85.9 Personal history of malignant neoplasm, unspecified; Z98.890 Other specified postprocedural states; W26.0XXA Contact with knife, initial encounter; Y93.89 Activity, other specified; Y92.89 Other specified places as the place of occurrence of the external cause; Y99.8 Other external cause status
CPT/HCPCS: 12042; 90471; 90715; 99284; J3490

== ENCOUNTER 2020-09-02 18:17 | Emergency (ER) | payer MEDICARE ==
[~2020-09-02] VITALS: Ht 175.3 cm; Wt 127.3 kg
[~2020-09-02 18:17] MED LIST changes: +CEPH500C PO
[2020-09-02 19:54] VITALS: BP 167/74
[2020-09-02] MEDS ORDERED: MUPIROCIN 2 % NASAL OINTMENT 22GM TUBE. TP ONE (20:15)
--- NOTE | 2020-09-02 20:41 | ED.ADGEN ---
Past Medical History Past Medical History: CAD, Cancer, Diabetes-Type II, GERD, High Cholesterol, Hypertension, [place] Additional Past Medical Histor: , CARDIAC STENTS Past Surgical History: Other Additional Past Surgical Histo: C.C. with stent placement, skin cancer removed Smoking Status: Never Smoker Alcohol Use: None Drug Use: None General Adult EDM: Chief Complaint: WOUND CHECK HPI: HPI: Patient is a 74 year old male, accompanied by his granddaughter, who presents emergency department for reevaluation of his left hand wound. Patient states he had his left hand sutured at this hospital yesterday after he accidentally cut it with a pocket knife. He denies any abnormal drainage or bleeding from the sutured area. He denies any fever, patient reports increased swelling and limited movement of his fingers due to the swelling. He denies any decreased sensation, numbness, or tingling. Patient reports that he has been taking the antibiotics that were prescribed. He currently denies any pain. Review of Systems: Review of Systems: Complete ROS is negative unless otherwise noted in HPI. Current Medications: Current Medications Medications (Trade) Dose Ordered Sig/Dari Start Time Stop Time Status Last Admin Dose Admin Mupirocin (Bactroban) 1 kamila 1X ONCE 09/02/20 20:15 09/02/20 20:16 DC 09/02/20 20:14 1 KAMILA Allergies: Allergies: Allergies Coded Allergies Type Severity Reaction Last Updated Verified No Known Drug Allergies 05/08/16 No Physical Exam: PE: See Above Constitutional: Well developed, well nourished, no acute distress, non-toxic appearance, obese. [] HENT: Normocephalic, atraumatic, bilateral external ears normal, nose normal. [] Eyes: PERRLA, EOMI, conjunctiva normal, no discharge. [] Neck: Normal range of motion, no stridor. [] Cardiovascular:Heart rate regular rhythm Lungs & Thorax: Respirations even and unlabored, no retractions, no respiratory distress Skin: Warm, dry, no erythema, no rash; healing laceration to the lateral aspect of the left hand with [address], no purulent drainage, no redness, no warmth, no bleeding laceration edges are well well approximated; bruising noted to the dorsal surface of the left hand Extremities: Left hand: 2+ radial pulse, normal sensation, no cyanosis, ROM intact, 2+ edema, cap refill less than 2 seconds [] Neurologic: Alert and oriented X 3, normal sensory, normal motor, no focal deficits noted. [] Psychologic: Affect normal, judgement normal, mood normal. [] Current Patient Data: Vital Signs: Vital Signs Date Time Temp Pulse Resp B/P (MAP) Pulse Ox O2 Delivery O2 Flow Rate FiO2 09/02/20 19:54 167/74 (105) 09/02/20 19:30 97.7 72 20 96 Room Air 97.7 EKG: EKG: [] Heart Score: C/O Chest Pain: No Risk Scores: Score 0 - 3: 2.5% MACE over next 6 weeks - Discharge Home Score 4 - 6: 20.3% MACE over next 6 weeks - Admit for Clinical Observation Score 7 - 10: 72.7% MACE over next 6 weeks - Early Invasive Strategies Radiology/Procedures: Radiology/Procedures: [] Course & Med Decision Making: Course & Med Decision Making Pertinent Labs and Imaging studies reviewed. (See chart for details) [] Dragon Disclaimer: Dragon Disclaimer: This electronic medical record was generated, in whole or in part, using a voice recognition dictation system. Departure Departure Impression: Primary Impression: Encounter for wound re-check Additional Impression: Swelling of left hand Disposition: 01 DC HOME SELF CARE/HOMELESS Condition: STABLE Referrals: FAZAL TOMLIN MD (PCP) Patient Instructions: Sutured Wound Care, [id number] Additional Instructions: Continue taking the antibiotics that were prescribed yesterday. Take Tylenol or ibuprofen as needed for pain. Wear the sling that was applied to keep the hand elevated, recommend application of ice to also help reduce swelling. Return to the ER if fever develops or hand begins draining pus. Problem Qualifiers HOMERO CUEVAS ELECTRICAL PROSPECTING OPERATOR Sep 02, 2020 20:41
== END 2020-09-02 20:44 | disposition home or self-care (01) ==
LOC: ER 18:17
DX: S61.412D Laceration without foreign body of left hand, subsequent encounter (principal); K21.9 Gastro-esophageal reflux disease without esophagitis; E11.9 Type 2 diabetes mellitus without complications; E78.00 Pure hypercholesterolemia, unspecified; I10 Essential (primary) hypertension; I25.2 Old myocardial infarction; I25.10 Atherosclerotic heart disease of native coronary artery without angina pectoris; Z95.5 Presence of coronary angioplasty implant and graft; W26.0XXD Contact with knife, subsequent encounter
CPT/HCPCS: 99283; A4565

== ENCOUNTER 2020-09-15 09:21 | Emergency (ER) | payer MEDICARE ==
[~2020-09-15] VITALS: Ht 177.8 cm; Wt 127.3 kg
[2020-09-15 09:35] VITALS: BP 141/79
--- NOTE | 2020-09-15 10:05 | PHYS DOC ---
Past Medical History Past Medical History: CAD, Cancer, Diabetes-Type II, GERD, High Cholesterol, Hypertension, [place] Additional Past Medical Histor: , CARDIAC STENTS Past Surgical History: Other Additional Past Surgical Histo: C.C. with stent placement, skin cancer removed Smoking Status: Never Smoker Alcohol Use: None Drug Use: None General Adult EDM: Chief Complaint: SUTURE/STAPLE REMOVAL HPI: HPI: Patient is a 74 year old male with history of coronary disease hypertension and diabetes presents emergency department for suture removal. Patient cut his hand on a box nailer 14 days ago. He had 14 superficial sutures placed. He had 5 subcutaneous sutures placed. He reports he has been keeping it clean and intact. Has had no erythema or drainage. He has been able to range the hand without difficulty. He denies any numbness or weakness to the hand. Patient otherwise has been feeling at baseline. Denies all other symptoms. Review of Systems: Review of Systems: Review of Systems: Constitutional: Denies fever or chills Eyes: Denies redness or eye pain HENT: Denies nasal congestion or sore throat Respiratory: Denies cough or shortness of breath Cardiovascular: Denies chest pain or palpitations GI: denies abdominal pain and nausea, denies vomiting or diarrhea : Denies dysuria or hematuria Musculoskeletal: Denies back pain or joint pain Integument: Denies rash or skin lesions Neurologic: Denies headache, focal weakness or sensory changes Heart Score: C/O Chest Pain: No Allergies: Allergies: Allergies Coded Allergies Type Severity Reaction Last Updated Verified No Known Drug Allergies 05/08/16 No Physical Exam: PE: GENERAL APPEARANCE: Awake and alert. Cooperative. No acute distress. Non toxic appearing. HEAD: Normocephalic. Atraumatic. EYES: EOM's grossly intact. Sclera anicteric. Conjunctiva clear ENT:. Airway patent. Mucous membranes moist. No trismus. Tolerating secretions. NECK: Supple. Trachea midline. HEART: Regular rate and rhythm. LUNGS: Respirations unlabored. EXTREMITIES: No acute deformities. SKIN: Warm and dry. No rash. NEUROLOGICAL: Alert and oriented x3. No gross neurological deficits. Moves all 4 extremities spontaneously. PSYCHIATRIC: Normal mood. Left hand: There are 14 simple sutures on the medial aspect of the hand. The wound is clean, dry and intact. Range of motion of the hand and finger joints are normal against resistance flexion and extension. Compartments are all soft. Sensation is intact. Pulses 2 out of 4. Good capillary refill. Current Patient Data: Vital Signs: Vital Signs Date Time Temp Pulse Resp B/P (MAP) Pulse Ox O2 Delivery O2 Flow Rate FiO2 09/15/20 09:35 98.1 73 16 141/79 (99) 97 Room Air 98.1 EKG: EKG: [] Radiology/Procedures: Radiology/Procedures: [] Course & Med Decision Making: Course & Med Decision Making Medical decision making: This is a 74-year-old male presents emergency department for suture removal. Sutures have been in place for 14 days. There were 14 sutures placed but needed removed. Prior to removal the laceration appeared clean, dry and intact. After removal patient did have a small amount of wound dehiscence on the medial portion of the laceration inferior to the MCP joint on the fifth digit. Steri-Strips were placed. Patient is instructed to keep the wound clean and dry. He is to continue antibiotic ointment. He is to try to limit movement of the left pinky finger to prevent further dehiscence. He is to follow-up with orthopedic physician. She needs wound rechecked in 1 to 2 days. Patient appears very reasonable. I feel he will follow my instructions. If the wound does get worse, develops any drainage or erythema he needs return to the emergency department immediately. The patient is given strict emergency department return precautions and follow up information. They express a verbal understanding of my instructions. The patient is aware of any labs and imaging. All questions are answered and patient is stable at the time of discharge. Vitoon Disclaimer: Olaf Disclaimer: This electronic medical record was generated, in whole or in part, using a voice recognition dictation system. Suture/Staple Removal Indication: Sutures placed 14 days ago. Procedure: The patient was placed in the appropriate position and the 14 sutures were removed without difficulty Other items: [OTHER INFO:] The patient tolerated the procedure well Complications: Patient did have very small amount of wound dehiscence after suture removal on the dorsal aspect of the hand on the medial portion of the laceration. This is inferior to the fifth MCP joint. Steri-Strips were placed over the wound and patient was put in a dressing to hold the gait finger in place. Departure Departure Impression: Primary Impression: Visit for suture removal Additional Impression: Wound dehiscence Disposition: ADMITTED INPATIENT Admitting Physician: GENARO (Spoke with Dr. Cuello at 1035. Accepted patient. Agrees with plan and will see the patient) Referrals: FAZAL TOMLIN MD (PCP) Please call and follow-up with 1 to 2 days. MAHAD BENAVIDES MD please call and follow up in 1-2 days Patient Instructions: Suture Removal, Wound Care, [id number], Wound Dehiscence MACEY BETANCUR DO Sep 15, 2020 10:05
== END 2020-09-15 10:25 | disposition home or self-care (01) ==
LOC: ER 09:21
DX: S61.412D Laceration without foreign body of left hand, subsequent encounter (principal); T81.30XD Disruption of wound, unspecified, subsequent encounter; R20.2 Paresthesia of skin; I11.9 Hypertensive heart disease without heart failure; E11.9 Type 2 diabetes mellitus without complications; K21.9 Gastro-esophageal reflux disease without esophagitis; E78.00 Pure hypercholesterolemia, unspecified; I25.2 Old myocardial infarction; Z85.9 Personal history of malignant neoplasm, unspecified; Z98.890 Other specified postprocedural states; W26.8XXD Contact with other sharp object(s), not elsewhere classified, subsequent encounter
CPT/HCPCS: 99282

== ENCOUNTER → 2020-10-30 | Outpatient (CLI) | payer MEDICARE ==
[~2020-10-30] MED LIST changes: +PERFLUTREN PROTEIN-A MICROSPHR 0.22 MG/ML 3 ML VIAL. IV ONE
--- NOTE | 2020-10-30 17:10 | CARD ---
MR#: [id number] Date of Study: 10/30/2020 Ordering Physician: CARL FAITH, Referring Physician: CARL FAITH, Tech: Carolina Perez [facility] APPROVED REPORT EXAM: Two-dimensional and M-mode echocardiogram with Doppler and color Doppler. Other Information Quality : FairHR: 67bpm Rhythm : NSR INDICATION AR 1998 2 Stents Echo Enhancing Agent Indication: Endocardial border delineation Agent/Amount Used: Optison 5mL RISK FACTORS Hypertension Hyperlipidemia Diabetes 2D DIMENSIONS RVDd3.2 (2.9-3.5cm)Left Atrium(2D)4.0 (1.6-4.0cm) IVSd1.5 (0.7-1.1cm)Aortic Root(2D)3.0 (2.0-3.7cm) LVDd3.4 (3.9-5.9cm)LVOT Diameter2.2 (1.8-2.4cm) PWd1.5 (0.7-1.1cm)LVDs2.6 (2.5-4.0cm) FS (%) 22.0 %SV20.9 ml Aortic Valve AoV Peak Meek.212.9cm/sAoV VTI61.2cm AO Peak GR.21.0mmHgLVOT Peak Meek.127.6cm/s AO Mean GR.11mmHgAVA (VMAX)2.33cm2 Mitral Valve MV E Twlrbymd09.2cm/sMV DECEL TDHC320zm MV A Nisfjjgs099.2cm/sE/A Ratio0.7 Pulmonary Valve PV Peak Euuxfzlx898.3cm/s Tricuspid Valve TR P. Rkbbfqeg738cv/sRAP NPVXIKJB0rfFd TR Peak Gr.5jrAtWFIN34fvJp Pulmonary Vein S1 Ooodnckq18.2cm/sD2 Mcvtnkuh25.5cm/s PVa riysodxb889zcir LEFT VENTRICLE The left ventricle is normal size. There is mild concentric left ventricular hypertrophy. Left ventri cular systolic function shows mild apical hypokinesis. The ejection fraction is 50 to 55%. Regional wall motion abnormalities noted. Tissue Doppler imaging reveals abnormal left ventricular diastolic d ysfunction. No left ventricle thrombus noted on this study. There is no ventricular septal defect vis ualized. There is no left ventricular aneurysm. There is no mass noted in the left ventricle. RIGHT VENTRICLE The right ventricle is normal size. The right ventricle is mildly hypertrophied. The right ventricula r systolic function is normal. ATRIA The left atrium size is normal. The right atrium size is normal. The interatrial septum is intact wit h no evidence for an atrial septal defect or patent foramen ovale as noted on 2-D or Doppler imaging. AORTIC VALVE The aortic valve is normal in structure and function. Doppler and Color Flow revealed no significant aortic regurgitation. There is no significant aortic valvular stenosis. There is no aortic valvular v egetation. MITRAL VALVE The mitral valve is normal in structure and function. There is no evidence of mitral valve prolapse. There is no mitral valve stenosis. There is trace mitral valve regurgitation. TRICUSPID VALVE The tricuspid valve is normal in structure and function. Doppler and Color Flow revealed trace tricus pid regurgitation. There is no tricuspid valve prolapse or vegetation. There is no tricuspid valve st enosis. PULMONIC VALVE The pulmonary valve is not well visualized. There is no pulmonic valvular regurgitation. There is no pulmonic valvular stenosis. GREAT VESSELS The aortic root is normal in size. The ascending aorta is normal in size. The pulmonary artery is nor mal. The IVC is normal in size and collapses >50% with inspiration. PERICARDIAL EFFUSION There is no pleural effusion. The pericardium appears normal. Critical Notification Critical Value: No <Conclusion> The left ventricle is normal size. Left ventricular systolic function shows mild apical hypokinesis. The ejection fraction is 50 to 55%. There is mild concentric left ventricular hypertrophy. Doppler and Color Flow revealed no significant aortic regurgitation. There is no significant aortic valvular stenosis. There is trace mitral valve regurgitation. Doppler and Color Flow revealed trace tricuspid regurgitation. Signed by : Carl Faith MD Electronically Approved : 10/30/2020 17:10:08
== END ==
LOC: ECHO 10:15
PROVIDERS: ATTEND Internal Medicine Cardiovascular Disease
DX: I21.02 ST elevation (STEMI) myocardial infarction involving left anterior descending coronary artery (principal); I51.7 Cardiomegaly
CPT/HCPCS: 93306; Q9956